=== PATIENT | female | born 1990 | race African-American/Black ===

== ENCOUNTER 2021-10-15 10:57 | Emergency (ER) | payer OTHER, MEDICAID ==
[~2021-10-15] VITALS: Ht 175.3 cm; Wt 45.4 kg
[2021-10-15 11:56] LABS: ABSOLUTE BASOPHILS 0.1 thou/uL (0.0-0.2); ABSOLUTE EOSINOPHILS 0.1 thou/uL (0.0-0.7); ABSOLUTE LYMPHOCYTES 2.4 thou/uL (0.8-5.3); ABSOLUTE MONOCYTES 0.6 thou/uL (0.0-1.2); ABSOLUTE NEUTROPHILS 4.8 thou/uL (1.6-8.1); EOSINOPHILS 0.9 %; HEMATOCRIT 43.8 % (37.0-47.0); HEMOGLOBIN 14.2 gm/dL (12.0-15.0); LYMPHOCYTES 29.8 %; MCH 29.1 pg (26.0-34.0); MCHC 32.3 g/dL (28.0-37.0); MCV 89.9 fL (80.0-100.0); MONOCYTES 7.6 %; MPV 9.5 fl. (7.2-11.1); NUCLEATED RBCS 0 /100WBC; PLATELET COUNT* 191 thou/uL (150-400); POLYS 60.7 %; RBC 4.87 mil/uL (4.20-5.00); RDW-CV 14.3 % (10.5-14.5); WBC 7.9 thou/uL (4.0-11.0)
[2021-10-15 12:05] LABS: CALCIUM 9.2 mg/dL (8.5-10.1); CREATININE 0.7 mg/dL (0.6-1.3); POTASSIUM 3.7 mmol/L (3.5-5.1)
[2021-10-15 12:19] LABS: ALBUMIN 4.4 g/dL (3.4-5.0); TOTAL BILIRUBIN 0.6 mg/dL (<0.1-1.0); TOTAL PROTEIN 8.4 g/dL (6.4-8.2)
[2021-10-15] MEDS ORDERED: ZOFRAN ODT4 MG PO (12:31)
[2021-10-15 12:45] VITALS: BP 132/84
== END 2021-10-15 12:45 | disposition home or self-care (01) ==
LOC: M.ERS 10:57
PROVIDERS: Physician Assistant
DX: R11.15 Cyclical vomiting syndrome unrelated to migraine (principal); R11.2 Nausea with vomiting, unspecified; R19.7 Diarrhea, unspecified; R10.84 Generalized abdominal pain

== ENCOUNTER 2021-10-17 08:35 | Emergency (ER) | payer OTHER, MEDICAID ==
[~2021-10-17] VITALS: Ht 175.3 cm; Wt 45.4 kg
[~2021-10-17 08:35] MED LIST: ZOFRAN ODT4 MG PO
[2021-10-17 11:24] LABS: HEMATOCRIT 42.3 % (37.0-47.0); MCH 29.3 pg (26.0-34.0); MCHC 33.2 g/dL (28.0-37.0); MCV 88.3 fL (80.0-100.0); MPV 9.8 fl. (7.2-11.1); NUCLEATED RBCS 0 /100WBC; PLATELET COUNT* 193 thou/uL (150-400); RBC 4.79 mil/uL (4.20-5.00); RDW-CV 14.1 % (10.5-14.5); WBC 8.5 thou/uL (4.0-11.0)
[2021-10-17 11:34] LABS: CREATININE 0.7 mg/dL (0.6-1.3)
[2021-10-17 11:35] LABS: POTASSIUM 2.8 mmol/L (3.5-5.1)
[2021-10-17 11:39] LABS: ALBUMIN 4.5 g/dL (3.4-5.0); TOTAL BILIRUBIN 0.6 mg/dL (<0.1-1.0); TOTAL PROTEIN 8.6 g/dL (6.4-8.2)
[2021-10-17 13:00] LABS: ABSOLUTE LYMPHOCYTES 0.9 thou/uL (0.8-5.3); ABSOLUTE MONOCYTES 0.4 thou/uL (0.0-1.2); ABSOLUTE NEUTROPHILS 7.1 thou/uL (1.6-8.1); PLATELET ESTIMATE ADEQUATE
[2021-10-17] MEDS ORDERED: APAP W/CODEINE1 TA2 PO (13:10)
[2021-10-17] MEDS ORDERED: ONDANSETRON ODT4 MG PO (13:10)
[2021-10-17] MEDS ORDERED: CIPRO500 M1 PO (13:10)
[2021-10-17] MEDS ORDERED: COMPAZINE5 M1 PO (13:10)
[2021-10-17] MEDS ORDERED: METRONIDAZOLE500 M4 PO (13:10)
[2021-10-17 13:24] LABS: URINE BILIRUBIN NEGATIVE (Negative); URINE BLOOD TRACE (Negative); URINE CLARITY CLEAR; URINE COLOR DARK YELLOW; URINE GLUCOSE-RANDOM NEGATIVE (Negative); URINE KETONES 1+ (Negative); URINE LEUKOCYTES-REFLEX NEGATIVE (Negative); URINE PROTEIN TRACE (Negative); URINE UROBILINOGEN 0.2 E.U./dl (0.2-1.0)
[2021-10-17 13:25] LABS: URINE NITRITE-REFLEX POSITIVE (Negative)
[2021-10-17 13:32] LABS: BACTERIA-REFLEX 1-9 Few /HPF (None Seen); CRYSTALS None Seen /LPF (None Seen); SQUAMOUS 4-10 Moderate /LPF (0-3); URINE RBC 0-2 Rare /HPF (0-2); URINE WBC-REFLEX 0-5 Rare /HPF (0-5)
[2021-10-17 13:33] LABS: HYALINE CASTS 0-3 Few /LPF (None Seen)
[2021-10-17 14:09] VITALS: BP 170/105
== END 2021-10-17 14:10 | disposition home or self-care (01) ==
LOC: M.ERS 08:35
PROVIDERS: Physician Assistant
DX: K52.9 Noninfective gastroenteritis and colitis, unspecified (principal); K31.84 Gastroparesis; F17.210 Nicotine dependence, cigarettes, uncomplicated